=== PATIENT | female | born 1960 | race Caucasian/White ===

== ENCOUNTER 2018-05-05 10:01 | Emergency (ER) | payer SELFPAY ==
[~2018-05-05] VITALS: Ht 160 cm; Wt 51.7 kg
[2018-05-05 10:10] VITALS: BP 135/80
[2018-05-05] MEDS ORDERED: CEFAZOLIN 1,000 MG ONE (10:37)
[2018-05-05] MEDS ORDERED: BACITRACIN ZINC OINT 500U/GM, 0.9 GM ONE (10:37)
[2018-05-05] MEDS ORDERED: CEFAZOLIN 1,000 MG IM ONE (11:00)
== END 2018-05-05 10:58 | disposition home or self-care (01) ==
LOC: ED 10:30
DX: L03.116 Cellulitis of left lower limb (principal); F17.200 Nicotine dependence, unspecified, uncomplicated
CPT/HCPCS: 96372; 99283; J0690

== ENCOUNTER 2018-06-09 19:36 | Emergency (ER) | payer MEDICARE, OTHER ==
[~2018-06-09] VITALS: Ht 154.9 cm; Wt 55.0 kg
[2018-06-09 20:16] VITALS: BP 144/91
[2018-06-09 20:41] LABS: BASOPHILS # (AUTO) 0.02 x10^3/uL (0-0.1); BASOPHILS % (AUTO) 0 % (0-1); EOSINOPHILS # (AUTO) 0.27 x10^3/uL (0-0.4); EOSINOPHILS % (AUTO) 4 % (1-7); LYMPHOCYTES # (AUTO) 2.01 x10^3/uL (1-3.4); LYMPHOCYTES % (AUTO) 29 % (22-44); MD NO; MEAN CORPUSCULAR HEMOGLOBIN 33.8 pg (27.0-34.8); MEAN CORPUSCULAR HGB CONC 34.5 g/dL (32.4-35.8); MEAN CORPUSCULAR VOLUME 98.2 fL (80-100); MEAN PLATELET VOLUME 8.2 fL (7.4-10.4); MONOCYTES # (AUTO) 0.39 x10^3/uL (0.2-0.8); MONOCYTES % (AUTO) 6 % (2-9); NEUTROPHILS # (AUTO) 4.28 x10^3/uL (1.8-6.8); NEUTROPHILS % (AUTO) 61 % (42-75); PLATELET COUNT 155 x10^3/uL (130-400); RED BLOOD COUNT 4.25 x10^6/uL (3.82-5.3); RED CELL DISTRIBUTION WIDTH 15.8 % (9.6-15.2)
[2018-06-09 20:49] LABS: ALBUMIN 3.7 g/dL (3.4-5.0); ANION GAP 13 mmol/L (5-15); CALCIUM 8.6 mg/dL (8.5-10.1); CHLORIDE 106 mmol/L (98-107); CREATININE 1.03 mg/dL (0.55-1.02)
[2018-06-09 20:59] LABS: FREE T4 (FREE THYROXINE) 0.85 ng/dL (0.76-1.46)
== END 2018-06-09 21:50 | disposition home or self-care (01) ==
LOC: ED 21:10
DX: J20.9 Acute bronchitis, unspecified (principal)
CPT/HCPCS: 36415; 71046; 80048; 82040; 84439; 84443; 85025; 93005; 99284